=== PATIENT | female | born 1945 | race Hispanic/Latino ===

== ENCOUNTER → 2018-05-11 | Outpatient (CLI) | payer MEDICARE | END | disposition home or self-care (01) | LOC: OIH 14:29 | PROVIDERS: ATTEND Internal Medicine | DX: M81.0 Age-related osteoporosis without current pathological fracture (principal); M19.072 Primary osteoarthritis, left ankle and foot; M19.071 Primary osteoarthritis, right ankle and foot; M85.88 Other specified disorders of bone density and structure, other site | CPT/HCPCS: 73130; 73521; 73630 ==

== ENCOUNTER → 2018-09-29 | Outpatient (CLI) | payer MEDICARE ==
[~2018-09-29] MED LIST: GADODIAMIDE 10 MMOL/20 ML ML IV ONE
== END | disposition home or self-care (01) ==
LOC: RAH 11:49
PROVIDERS: ATTEND Internal Medicine
DX: M13.871 Other specified arthritis, right ankle and foot (principal); M25.771 Osteophyte, right ankle; R60.9 Edema, unspecified; M06.4 Inflammatory polyarthropathy
CPT/HCPCS: 73720; 73723; A9579

== ENCOUNTER → 2020-05-01 | Outpatient (CLI) | payer MEDICARE | END | disposition home or self-care (01) | LOC: OIH 15:25 | PROVIDERS: ATTEND Internal Medicine | DX: M19.072 Primary osteoarthritis, left ankle and foot (principal); M19.071 Primary osteoarthritis, right ankle and foot | CPT/HCPCS: 73630 ==

== ENCOUNTER 2022-11-17 00:02 | Inpatient (IN) | payer MEDICARE ==
[2022-11-17] VITALS (7 sets, daily range): BP systolic 118–140; BP diastolic 62–74
[~2022-11-17] VITALS: Ht 170.2 cm; Wt 73.0 kg
[2022-11-17] MEDS ORDERED: NITROGLYCERIN 0.4 MG SL TAB SL PRN (02:30)
[2022-11-17] MEDS ORDERED: ONDANSETRON 4MG INJ IV PRN (02:30)
[2022-11-17] MEDS ORDERED: CALC-1125 PO (02:55)
[2022-11-17] MEDS ORDERED: CYAN50009 PO (02:58)
[2022-11-17] MEDS ORDERED: GABA-529 PO (03:14)
[2022-11-17] MEDS ORDERED: DICL100G32 TP (03:14)
[2022-11-17] MEDS ORDERED: LORA10TA7 PO (03:14)
[2022-11-17] MEDS ORDERED: VITAD50000 PO (03:14)
[2022-11-17] MEDS ORDERED: SIMV-43 PO (03:14)
[2022-11-17] MEDS ORDERED: LEVO75CA5 PO (03:14)
[2022-11-17] MEDS ORDERED: PROP10DR26 OP (03:14)
[2022-11-17] MEDS ORDERED: GABA300C PO (03:14)
[2022-11-17] MEDS ORDERED: OXCA150T27 PO (03:16)
[2022-11-17] MEDS ORDERED: LEVOFLOXACIN 500 MG/D5W 100 ML 100 ML IV ONE (03:30)
[2022-11-17] MEDS: 0.9%NACL 1000ML 1,000 ML IV SCH ×3 (03:34→22:53)
[2022-11-17 03:38] LABS: APPEARANCE,URINE CLEAR (CLEAR); BILIRUBIN,URINE NEGATIVE (NEGATIVE); COLOR,URINE COLORLESS (YELLOW); GLUCOSE, URINE (UA) NEGATIVE (NEGATIVE); KETONES,URINE NEGATIVE (NEGATIVE); LEUKOCYTE ESTERASE ,URINE NEGATIVE Leu/uL (NEGATIVE); NITRATE,URINE NEGATIVE (NEGATIVE); OCCULT BLOOD,URINE SMALL (NEGATIVE); PH,URINE 5.5 (5.0-8.0); PROTEIN,URINE NEGATIVE (NEGATIVE); UROBILINOGEN,URINE 0.2 mg/dL (0.2-1.0)
[2022-11-17 03:56] LABS: MUCUS,URINE RARE LPF (None Seen); WBC,URINE 0-1 /HPF (0-1)
[2022-11-17 06:03] LABS: LYMPHOCYTES % (AUTO) 11.4 % (21.0-51.0); MEAN CORPUSCULAR HEMOGLOBIN 27.4 pg (27.0-33.0); MEAN CORPUSCULAR HGB CONC 31.9 g/dL (32.0-36.0); MONOCYTES % (AUTO) 1.8 % (3.0-13.0); NEUTROPHILS % (AUTO) 86.6 % (40.0-77.0); PLATELET COUNT (AUTO) 245 K/uL (130-400); RED CELL DISTRIBUTION WIDTH 13.4 % (11.0-15.5); WHITE BLOOD COUNT (AUTO) 8.6 K/uL (4.8-10.8)
[2022-11-17 06:17] LABS: INR 0.94 (0.85-1.15); PROTHROMBIN TIME 10.3 SEC (9.6-11.6)
[2022-11-17 06:18] LABS: PARTIAL THROMBOPLASTIN TIME 27.4 SEC (26.3-35.5)
[2022-11-17 06:29] LABS: ALBUMIN 3.5 g/dL (3.5-5.0); CREATININE 0.9 mg/dL (0.5-1.5); MAGNESIUM 1.9 mg/dL (1.80-2.40); THYROID STIMULATING HORMONE 0.77 uIU/mL (0.36-3.74); TOTAL PROTEIN, SERUM 7.2 g/dL (6.0-8.3)
[2022-11-17] MEDS: FAMOTIDINE 20MG VIAL IV SCH ×2 (08:08→20:46)
[2022-11-17] MEDS ORDERED: KETOROLAC 15MG/ML VIAL (15MG/ML) IV ONE (21:30)
[2022-11-17] MEDS: LEVOFLOXACIN 500 MG/D5W 100 ML 100 ML IV SCH (22:52)
[2022-11-18 04:42] VITALS: BP 116/63
[2022-11-18 06:08] LABS: BASOPHILS % (AUTO) 0.5 % (0.0-5.0); EOSINOPHILS % (AUTO) 0.9 % (0.0-8.0); LYMPHOCYTES % (AUTO) 33.5 % (21.0-51.0); MEAN CORPUSCULAR HEMOGLOBIN 27.6 pg (27.0-33.0); MEAN CORPUSCULAR HGB CONC 31.4 g/dL (32.0-36.0); MEAN CORPUSCULAR VOLUME 87.9 fL (79-99); MONOCYTES % (AUTO) 8.4 % (3.0-13.0); NEUTROPHILS % (AUTO) 56.4 % (40.0-77.0); PLATELET COUNT (AUTO) 215 K/uL (130-400); RED BLOOD CELL COUNT(AUTO) 3.98 MIL/uL (4.00-5.50); RED CELL DISTRIBUTION WIDTH 13.3 % (11.0-15.5); WHITE BLOOD COUNT (AUTO) 6.6 K/uL (4.8-10.8)
[2022-11-18 06:29] LABS: CREATININE 0.8 mg/dL (0.5-1.5); MAGNESIUM 1.9 mg/dL (1.80-2.40); POTASSIUM 3.3 mmol/L (3.5-5.1)
[2022-11-18 08:04] VITALS: BP 128/59
[2022-11-18] MEDS: FAMOTIDINE 20MG VIAL IV SCH ×2 (08:34→21:10)
[2022-11-18] MEDS: 0.9%NACL 1000ML 1,000 ML IV SCH ×2 (08:37→18:30)
[2022-11-18] MEDS ORDERED: KCL 20 MEQ ERTAB PO PRN (11:00)
[2022-11-18] MEDS ORDERED: POTASSIUM CHLORIDE 20MEQ/100ML 100 ML IV PRN (11:00)
[2022-11-18] MEDS ORDERED: MAGNESIUM 2GM PREMIX 50ML 50 ML IV PRN (11:00)
[2022-11-18] MEDS ORDERED: LIDOCAINE HCL-MPF 1% 2ML VIAL IV PRN (11:00)
[2022-11-18 11:28] VITALS: BP 144/73
[2022-11-18 16:29] VITALS: BP 138/60
[2022-11-18] MEDS: POTASSIUM CHLORIDE 10% ELIXIR 20 MEQ/15 ML UDCUP PO PRN ×2 (18:35→22:59)
[2022-11-18] MEDS ORDERED: DIATR MEGLU/DIATRIZOATE SODIUM 30 ML BOTTLE ONE (19:37)
[2022-11-18 20:00] VITALS: BP 132/63
[2022-11-18] MEDS ORDERED: LEVOFLOXACIN 500 MG/D5W 100 ML 100 ML IV SCH (21:00)
[2022-11-18] MEDS: LEVOFLOXACIN 500 MG/D5W 100 ML 100 ML IV SCH (21:10)
[2022-11-19] VITALS: BP 143/66
[2022-11-19 04:00] VITALS: BP 132/71
[2022-11-19] MEDS: 0.9%NACL 1000ML 1,000 ML IV SCH ×2 (04:30→14:15)
[2022-11-19 07:53] VITALS: BP 123/61
[2022-11-19] MEDS: FAMOTIDINE 20MG VIAL IV SCH (09:00)
[2022-11-19 11:11] VITALS: BP 140/66
[2022-11-19 16:43] VITALS: BP 125/66
== END 2022-11-19 17:00 | disposition home or self-care (01) | DRG 687 ==
LOC: 3DH 01:35
PROVIDERS: ADMIT Internal Medicine; ATTEND Internal Medicine
DX: C67.9 Malignant neoplasm of bladder, unspecified (principal); K56.600 Partial intestinal obstruction, unspecified as to cause; N39.0 Urinary tract infection, site not specified; T83.518A Infection and inflammatory reaction due to other urinary catheter, initial encounter; Z20.822 Contact with and (suspected) exposure to COVID-19; Y84.6 Urinary catheterization as the cause of abnormal reaction of the patient, or of later complication, without mention of misadventure at the time of the procedure; I10 Essential (primary) hypertension; M19.90 Unspecified osteoarthritis, unspecified site; E03.9 Hypothyroidism, unspecified; T36.1X5A Adverse effect of cephalosporins and other beta-lactam antibiotics, initial encounter; E78.5 Hyperlipidemia, unspecified; Z82.49 Family history of ischemic heart disease and other diseases of the circulatory system; Z82.62 Family history of osteoporosis; Z85.51 Personal history of malignant neoplasm of bladder; Z87.891 Personal history of nicotine dependence; Z93.6 Other artificial openings of urinary tract status; Z90.710 Acquired absence of both cervix and uterus
CPT/HCPCS: 36415; 74018; 74176; 80048; 80053; 81001; 82948; 83735; 84443; 85025; 85610; 85730; 87088; 87635; 93005; G0378; J1885; J1956; J3475; J3490; Q9963